=== PATIENT | male | born 1985 | race Caucasian/White ===

== ENCOUNTER 2020-08-01 20:28 | Emergency (ER) | payer OTHER ==
[~2020-08-01] VITALS: Ht 172.7 cm; Wt 83.9 kg
[2020-08-01] MEDS ORDERED: NORCO 5-325 TA1 EAC2 PO (23:21)
[2020-08-01] MEDS ORDERED: KEFLEX500 M1 PO (23:21)
[2020-08-01 23:38] VITALS: BP 108/64
== END 2020-08-01 23:38 | disposition home or self-care (01) ==
LOC: M.ERS 20:28
DX: S61.210A Laceration without foreign body of right index finger without damage to nail, initial encounter (principal); W45.8XXA Other foreign body or object entering through skin, initial encounter; Y93.89 Activity, other specified; Y92.89 Other specified places as the place of occurrence of the external cause; Y99.8 Other external cause status

== ENCOUNTER 2020-08-03 00:13 | Emergency (ER) | payer OTHER ==
[~2020-08-03] VITALS: Ht 172.7 cm; Wt 83.9 kg
[~2020-08-03 00:13] MED LIST: KEFLEX500 M1 PO; NORCO 5-325 TA1 EAC2 PO
[2020-08-03 01:30] VITALS: BP 104/62
== END 2020-08-03 01:31 | disposition home or self-care (01) ==
LOC: M.ERS 00:13
DX: M79.644 Pain in right finger(s) (principal); Z48.01 Encounter for change or removal of surgical wound dressing